=== PATIENT | female | born 2000 | race Caucasian/White ===

== ENCOUNTER 2018-02-08 15:45 | Emergency (ER) | payer BC ==
[~2018-02-08] VITALS: Ht 162.6 cm; Wt 58.3 kg
[2018-02-08] MEDS ORDERED: KEFLEX500 MG PO (17:18)
[2018-02-08 18:07] VITALS: BP 108/64
== END 2018-02-08 18:07 | disposition home or self-care (01) ==
LOC: EME 15:45
PROC: 0HQGXZZ Repair Left Hand Skin, External Approach (ICD-10-PCS; principal; 2018-02-08)
DX: S61.012A Laceration without foreign body of left thumb without damage to nail, initial encounter (principal); W45.8XXA Other foreign body or object entering through skin, initial encounter; W22.8XXA Striking against or struck by other objects, initial encounter; Z72.0 Tobacco use
CPT/HCPCS: 73140